=== PATIENT | male | born 1985 | race African-American/Black ===

== ENCOUNTER 2017-12-23 04:27 | Emergency (ER) | payer MEDICARE ==
[~2017-12-23] VITALS: Ht 175.3 cm; Wt 84.8 kg
[2017-12-23 04:33] VITALS: Ht 175.3 cm; Wt 84.8 kg
[2017-12-23 06:04] VITALS: BP 121/84
== END 2017-12-23 06:04 | disposition home or self-care (01) ==
LOC: ED 04:27
DX: S93.602A Unspecified sprain of left foot, initial encounter (principal); X58.XXXA Exposure to other specified factors, initial encounter; Y93.89 Activity, other specified; Y92.89 Other specified places as the place of occurrence of the external cause; Y99.8 Other external cause status
CPT/HCPCS: Q0092

== ENCOUNTER 2018-06-10 20:40 | Emergency (ER) | payer OTHER, MEDICAID ==
[~2018-06-10] VITALS: Ht 177.8 cm; Wt 90.4 kg
[2018-06-10 20:44] VITALS: Ht 177.8 cm; Wt 90.4 kg
[2018-06-10 21:32] VITALS: BP 124/90
== END 2018-06-10 21:32 | disposition home or self-care (01) ==
LOC: ED 20:40
DX: S46.812A Strain of other muscles, fascia and tendons at shoulder and upper arm level, left arm, initial encounter (principal); X50.9XXA Other and unspecified overexertion or strenuous movements or postures, initial encounter; Y93.89 Activity, other specified; Y92.89 Other specified places as the place of occurrence of the external cause; Y99.8 Other external cause status
CPT/HCPCS: Q0092

== ENCOUNTER 2018-06-12 18:05 | Emergency (ER) | payer OTHER, MEDICAID ==
[~2018-06-12] VITALS: Ht 177.8 cm; Wt 88.5 kg
[2018-06-12 18:19] VITALS: Ht 177.8 cm; Wt 88.5 kg
[2018-06-12 18:51] VITALS: BP 134/81
== END 2018-06-12 20:31 | disposition home or self-care (01) ==
LOC: ED 18:05
DX: S46.911A Strain of unspecified muscle, fascia and tendon at shoulder and upper arm level, right arm, initial encounter (principal); S86.912A Strain of unspecified muscle(s) and tendon(s) at lower leg level, left leg, initial encounter; M62.830 Muscle spasm of back; W01.0XXA Fall on same level from slipping, tripping and stumbling without subsequent striking against object, initial encounter; Y93.89 Activity, other specified; Y92.89 Other specified places as the place of occurrence of the external cause; Y99.8 Other external cause status
CPT/HCPCS: Q0092

== ENCOUNTER 2018-06-17 15:13 | Emergency (ER) | payer OTHER, MEDICAID ==
[~2018-06-17] VITALS: Ht 177.8 cm; Wt 90.7 kg
[2018-06-17 15:21] VITALS: Ht 177.8 cm; Wt 90.7 kg
[2018-06-17 16:12] VITALS: BP 132/94
== END 2018-06-17 16:17 | disposition home or self-care (01) ==
LOC: ED 15:13
DX: Z13.89 Encounter for screening for other disorder (principal)

== ENCOUNTER 2018-06-20 15:35 | Emergency (ER) | payer OTHER, MEDICAID ==
[~2018-06-20] VITALS: Ht 177.8 cm; Wt 84.8 kg
[2018-06-20 15:42] VITALS: Ht 177.8 cm; Wt 84.8 kg
[2018-06-20 16:46] VITALS: BP 130/71
== END 2018-06-20 16:46 | disposition home or self-care (01) ==
LOC: ED 15:35
DX: G44.209 Tension-type headache, unspecified, not intractable (principal)
CPT/HCPCS: J1885

== ENCOUNTER 2018-06-26 15:07 | Emergency (ER) | payer OTHER, MEDICAID ==
[~2018-06-26] VITALS: Ht 177.8 cm; Wt 90.7 kg
[2018-06-26 15:54] VITALS: BP 126/83; Ht 177.8 cm; Wt 90.7 kg
== END 2018-06-26 18:50 | disposition home or self-care (01) ==
LOC: ED 15:07
DX: R06.02 Shortness of breath (principal); R03.0 Elevated blood-pressure reading, without diagnosis of hypertension

== ENCOUNTER 2018-06-27 07:21 | Emergency (ER) | payer OTHER, MEDICAID ==
[~2018-06-27] VITALS: Ht 177.8 cm; Wt 91.6 kg
[2018-06-27 07:48] VITALS: BP 136/56; Ht 177.8 cm; Wt 91.6 kg
== END 2018-06-27 09:12 | disposition left against medical advice (07) ==
LOC: ED 07:21
DX: Z53.21 Procedure and treatment not carried out due to patient leaving prior to being seen by health care provider (principal)

== ENCOUNTER 2018-07-05 19:01 | Emergency (ER) | payer OTHER, MEDICAID ==
[~2018-07-05] VITALS: Ht 177.8 cm; Wt 90.3 kg
[2018-07-05 20:28] VITALS: Ht 177.8 cm; Wt 90.3 kg
[2018-07-05 23:44] VITALS: BP 133/77
== END 2018-07-05 23:44 | disposition home or self-care (01) ==
LOC: ED 19:01
DX: M79.672 Pain in left foot (principal); R03.0 Elevated blood-pressure reading, without diagnosis of hypertension; Z88.8 Allergy status to other drugs, medicaments and biological substances; Z91.013 Allergy to seafood; X58.XXXA Exposure to other specified factors, initial encounter; Y93.01 Activity, walking, marching and hiking; Y92.89 Other specified places as the place of occurrence of the external cause; Y99.8 Other external cause status
CPT/HCPCS: Q0092

== ENCOUNTER 2018-07-11 21:38 | Emergency (ER) | payer OTHER, MEDICAID ==
[~2018-07-11] VITALS: Ht 177.8 cm; Wt 86.6 kg
[2018-07-11 22:07] VITALS: Ht 177.8 cm; Wt 86.6 kg
[2018-07-12 01:31] VITALS: BP 130/74
== END 2018-07-12 06:15 | disposition left against medical advice (07) ==
LOC: ED 21:38
DX: S93.602A Unspecified sprain of left foot, initial encounter (principal); Z91.013 Allergy to seafood; Z88.8 Allergy status to other drugs, medicaments and biological substances; X58.XXXA Exposure to other specified factors, initial encounter; Y93.89 Activity, other specified; Y92.89 Other specified places as the place of occurrence of the external cause; Y99.8 Other external cause status

== ENCOUNTER 2018-07-18 05:32 | Emergency (ER) | payer OTHER, MEDICAID ==
[~2018-07-18] VITALS: Ht 177.8 cm; Wt 90.3 kg
[2018-07-18 05:40] VITALS: BP 119/68; Ht 177.8 cm; Wt 90.3 kg
== END 2018-07-18 07:16 | disposition home or self-care (01) ==
LOC: ED 05:32
DX: M79.672 Pain in left foot (principal); M79.671 Pain in right foot; M54.5 Low back pain; M25.512 Pain in left shoulder
CPT/HCPCS: J1885

== ENCOUNTER 2018-07-29 18:36 | Emergency (ER) | payer OTHER, MEDICAID ==
[~2018-07-29] VITALS: Ht 177.8 cm; Wt 87.1 kg
[2018-07-29 18:39] VITALS: BP 153/93; Ht 177.8 cm; Wt 87.1 kg
== END 2018-07-29 19:34 | disposition home or self-care (01) ==
LOC: ED 18:36
DX: G89.29 Other chronic pain (principal); M54.5 Low back pain; M19.90 Unspecified osteoarthritis, unspecified site; Z88.8 Allergy status to other drugs, medicaments and biological substances; Z91.013 Allergy to seafood
CPT/HCPCS: J1885

== ENCOUNTER 2018-08-03 16:10 | Emergency (ER) | payer OTHER, MEDICAID ==
[~2018-08-03] VITALS: Ht 175.3 cm; Wt 90.3 kg
[2018-08-03 16:20] VITALS: BP 136/83; Ht 175.3 cm; Wt 90.3 kg
== END 2018-08-03 17:43 | disposition left against medical advice (07) ==
LOC: ED 16:10
DX: Z53.21 Procedure and treatment not carried out due to patient leaving prior to being seen by health care provider (principal)

== ENCOUNTER 2018-08-31 20:16 | Emergency (ER) | payer OTHER, MEDICAID ==
[~2018-08-31] VITALS: Ht 177.8 cm; Wt 90.7 kg
[2018-08-31 20:55] VITALS: BP 108/91; Ht 177.8 cm; Wt 90.7 kg
== END 2018-08-31 23:18 | disposition left against medical advice (07) ==
LOC: ED 20:16
DX: Z53.21 Procedure and treatment not carried out due to patient leaving prior to being seen by health care provider (principal)

== ENCOUNTER 2018-09-12 00:22 | Emergency (ER) | payer OTHER, MEDICAID ==
[~2018-09-12] VITALS: Ht 175.3 cm; Wt 89.8 kg
[2018-09-12 00:26] VITALS: Ht 175.3 cm; Wt 89.8 kg
[2018-09-12 04:48] VITALS: BP 143/77
== END 2018-09-12 04:48 | disposition home or self-care (01) ==
LOC: ED 00:22
DX: R10.9 Unspecified abdominal pain (principal); G89.29 Other chronic pain; M19.90 Unspecified osteoarthritis, unspecified site; Z59.0 Homelessness; Z91.013 Allergy to seafood; Z88.8 Allergy status to other drugs, medicaments and biological substances
CPT/HCPCS: J1885

== ENCOUNTER 2018-09-20 02:44 | Emergency (ER) | payer OTHER, MEDICAID ==
[~2018-09-20] VITALS: Ht 175.3 cm; Wt 90.7 kg
[2018-09-20 02:48] VITALS: Ht 175.3 cm; Wt 90.7 kg
[2018-09-20 05:20] VITALS: BP 131/78
== END 2018-09-20 05:15 | disposition home or self-care (01) ==
LOC: ED 02:44
DX: G89.29 Other chronic pain (principal); M54.9 Dorsalgia, unspecified; Z91.013 Allergy to seafood; Z88.8 Allergy status to other drugs, medicaments and biological substances
CPT/HCPCS: J1885

== ENCOUNTER 2018-09-22 19:59 | Emergency (ER) | payer OTHER, MEDICAID ==
[~2018-09-22] VITALS: Ht 172.7 cm; Wt 88.5 kg
[2018-09-22 20:06] VITALS: Ht 172.7 cm; Wt 88.5 kg
[2018-09-22 21:27] VITALS: BP 127/87
== END 2018-09-22 21:27 | disposition home or self-care (01) ==
LOC: ED 19:59
DX: G89.29 Other chronic pain (principal); M79.671 Pain in right foot; M79.672 Pain in left foot; Z91.013 Allergy to seafood; Z88.8 Allergy status to other drugs, medicaments and biological substances

== ENCOUNTER 2018-09-23 06:27 | Emergency (ER) | payer OTHER, MEDICAID ==
[~2018-09-23] VITALS: Ht 175.3 cm; Wt 87.5 kg
[2018-09-23 06:31] VITALS: Ht 175.3 cm; Wt 87.5 kg
[2018-09-23 07:59] VITALS: BP 125/82
== END 2018-09-23 07:59 | disposition home or self-care (01) ==
LOC: ED 06:27
DX: G89.29 Other chronic pain (principal); M79.672 Pain in left foot; F17.210 Nicotine dependence, cigarettes, uncomplicated; M54.9 Dorsalgia, unspecified; M19.90 Unspecified osteoarthritis, unspecified site; Z59.0 Homelessness; Z91.013 Allergy to seafood; Z91.048 Other nonmedicinal substance allergy status
CPT/HCPCS: 99406

== ENCOUNTER 2018-09-23 21:40 | Emergency (ER) | payer OTHER, MEDICAID ==
[~2018-09-23] VITALS: Ht 172.7 cm; Wt 89.8 kg
[2018-09-23 21:45] VITALS: Ht 172.7 cm; Wt 89.8 kg
[2018-09-23 23:08] VITALS: BP 131/93
== END 2018-09-23 23:08 | disposition home or self-care (01) ==
LOC: ED 21:40
DX: R22.0 Localized swelling, mass and lump, head (principal); G89.29 Other chronic pain; M19.90 Unspecified osteoarthritis, unspecified site; Z91.013 Allergy to seafood; Z91.048 Other nonmedicinal substance allergy status

== ENCOUNTER 2018-10-02 18:37 | Emergency (ER) | payer OTHER, MEDICAID | END 2018-10-02 22:22 | disposition home or self-care (01) | LOC: ED 18:37 ==

== ENCOUNTER 2018-10-08 02:43 | Emergency (ER) | payer OTHER, MEDICAID ==
[~2018-10-08] VITALS: Ht 175.3 cm; Wt 93.0 kg
[2018-10-08 02:56] VITALS: Ht 175.3 cm; Wt 93.0 kg
[2018-10-08 04:07] LABS: BASOPHIL % 0.5 % (0-2); PLATELET COUNT 207 x10^3mcL (130-400); RED CELL DISTRIBUTION WIDTH 14.1 % (11.5-14.5)
[2018-10-08 04:10] LABS: CALCIUM 8.4 mg/dL (8.5-10.1); CARBON DIOXIDE 30.3 mmol/L (21-32); CHLORIDE SERUM 101 mmol/L (98-107); GFR1 > 60 mL/min; GLUCOSE SERUM 102 mg/dL (74-106); POTASSIUM SERUM 4.1 mmol/L (3.5-5.1); SODIUM SERUM 135 mmol/L (136-145)
[2018-10-08 04:14] LABS: ALBUMIN 3.6 g/dL (3.4-5.0); ALKALINE PHOSPHATASE 57 U/L (46-116); ALT/SGPT 34 U/L (16-63); AMYLASE 65 U/L (25-115); AST/SGOT 20 U/L (15-37); BILIRUBIN TOTAL 0.32 mg/dL (0.20-1.00); LIPASE 107 IU/L (73-393); TOTAL PROTEIN, SERUM 7.2 g/dL (6.4-8.2)
[2018-10-08 06:18] VITALS: BP 128/91
== END 2018-10-08 06:18 | disposition home or self-care (01) ==
LOC: ED 02:43
PROVIDERS: Emergency Medicine
DX: K59.00 Constipation, unspecified (principal)
CPT/HCPCS: 36415

== ENCOUNTER 2018-10-28 20:12 | Emergency (ER) | payer OTHER, MEDICAID | END 2018-10-28 22:25 | disposition left against medical advice (07) | LOC: ED 20:12 | DX: Z53.21 Procedure and treatment not carried out due to patient leaving prior to being seen by health care provider (principal) ==

== ENCOUNTER 2018-12-09 21:34 | Emergency (ER) | payer BC, MEDICAID ==
[~2018-12-09] VITALS: Ht 175.3 cm; Wt 90.8 kg
[2018-12-09 21:55] VITALS: BP 95/74; Ht 175.3 cm; Wt 90.8 kg
== END 2018-12-09 22:36 | disposition left against medical advice (07) ==
LOC: ED 21:34
DX: Z53.21 Procedure and treatment not carried out due to patient leaving prior to being seen by health care provider (principal)

== ENCOUNTER 2018-12-15 22:59 | Emergency (ER) | payer OTHER, MEDICAID ==
[~2018-12-15] VITALS: Ht 172.7 cm; Wt 93.0 kg
[2018-12-15 23:06] VITALS: Ht 172.7 cm; Wt 93.0 kg
[2018-12-16 01:23] VITALS: BP 130/78
== END 2018-12-16 01:23 | disposition home or self-care (01) ==
LOC: ED 22:59
DX: R07.89 Other chest pain (principal); R06.02 Shortness of breath; R05 Cough; G89.29 Other chronic pain; M54.9 Dorsalgia, unspecified; M19.90 Unspecified osteoarthritis, unspecified site; Z91.013 Allergy to seafood; Z91.041 Radiographic dye allergy status

== ENCOUNTER 2018-12-16 23:09 | Emergency (ER) | payer OTHER, MEDICAID ==
[~2018-12-16] VITALS: Ht 175.3 cm; Wt 90.0 kg
[2018-12-16 23:13] VITALS: Ht 175.3 cm; Wt 90.0 kg
[2018-12-17 01:11] VITALS: BP 132/96
== END 2018-12-17 01:12 | disposition home or self-care (01) ==
LOC: ED 23:09
DX: J45.901 Unspecified asthma with (acute) exacerbation (principal); M19.90 Unspecified osteoarthritis, unspecified site; Z88.8 Allergy status to other drugs, medicaments and biological substances; Z91.013 Allergy to seafood
CPT/HCPCS: J7613; Q0092

== ENCOUNTER 2018-12-22 19:26 | Emergency (ER) | payer OTHER, MEDICAID ==
[~2018-12-22] VITALS: Ht 175.3 cm; Wt 89.8 kg
[2018-12-22 19:36] VITALS: BP 156/110; Ht 175.3 cm; Wt 89.8 kg
== END 2018-12-22 21:45 | disposition home or self-care (01) ==
LOC: ED 19:26
DX: S50.361A Insect bite (nonvenomous) of right elbow, initial encounter (principal); M19.90 Unspecified osteoarthritis, unspecified site; Z91.013 Allergy to seafood; Z88.8 Allergy status to other drugs, medicaments and biological substances; W57.XXXA Bitten or stung by nonvenomous insect and other nonvenomous arthropods, initial encounter; Y93.89 Activity, other specified; Y92.89 Other specified places as the place of occurrence of the external cause; Y99.8 Other external cause status

== ENCOUNTER 2019-02-21 20:22 | Emergency (ER) | payer OTHER, MEDICAID ==
[~2019-02-21] VITALS: Ht 172.7 cm; Wt 86.6 kg
[2019-02-21 20:30] VITALS: Ht 172.7 cm; Wt 86.6 kg
[2019-02-21 21:50] VITALS: BP 119/73
== END 2019-02-21 21:50 | disposition home or self-care (01) ==
LOC: ED 20:22
DX: M19.90 Unspecified osteoarthritis, unspecified site (principal); G89.29 Other chronic pain; M54.9 Dorsalgia, unspecified; M79.642 Pain in left hand; M79.641 Pain in right hand; M79.672 Pain in left foot; M79.671 Pain in right foot; Z91.013 Allergy to seafood; Z76.0 Encounter for issue of repeat prescription; Z91.041 Radiographic dye allergy status
CPT/HCPCS: 82962; J1885

== ENCOUNTER 2019-03-04 20:04 | Emergency (ER) | payer OTHER, MEDICAID ==
[~2019-03-04] VITALS: Ht 175.3 cm; Wt 86.2 kg
[2019-03-04 20:20] VITALS: BP 107/63; Ht 175.3 cm; Wt 86.2 kg
== END 2019-03-04 21:02 | disposition home or self-care (01) ==
LOC: ED 20:04
DX: G89.29 Other chronic pain (principal); M54.5 Low back pain; Z88.8 Allergy status to other drugs, medicaments and biological substances; Z91.013 Allergy to seafood

== ENCOUNTER 2019-03-17 19:46 | Emergency (ER) | payer OTHER, MEDICAID ==
[~2019-03-17] VITALS: Ht 175.3 cm; Wt 90.3 kg
[2019-03-17 20:35] VITALS: Ht 175.3 cm; Wt 90.3 kg
[2019-03-18 02:24] VITALS: BP 118/69
== END 2019-03-18 02:24 | disposition home or self-care (01) ==
LOC: ED 19:46
DX: R07.81 Pleurodynia (principal); M25.561 Pain in right knee; Z88.8 Allergy status to other drugs, medicaments and biological substances; Z91.013 Allergy to seafood; V02.09XA Pedestrian with other conveyance injured in collision with two- or three-wheeled motor vehicle in nontraffic accident, initial encounter; Y93.89 Activity, other specified; Y92.413 State road as the place of occurrence of the external cause; Y99.8 Other external cause status
CPT/HCPCS: Q0162

== ENCOUNTER 2019-03-25 14:15 | Emergency (ER) | payer OTHER, MEDICAID ==
[~2019-03-25] VITALS: Ht 175.3 cm; Wt 90.3 kg
[2019-03-25 14:30] VITALS: Ht 175.3 cm; Wt 90.3 kg
[2019-03-25 15:24] VITALS: BP 133/79
== END 2019-03-25 15:24 | disposition home or self-care (01) ==
LOC: ED 14:15
DX: K42.9 Umbilical hernia without obstruction or gangrene (principal); G89.29 Other chronic pain; M54.9 Dorsalgia, unspecified; M19.90 Unspecified osteoarthritis, unspecified site; Z91.013 Allergy to seafood; Z91.041 Radiographic dye allergy status

== ENCOUNTER 2019-04-21 19:58 | Emergency (ER) | payer OTHER, MEDICAID ==
[~2019-04-21] VITALS: Ht 175.3 cm; Wt 95.3 kg
[2019-04-21 22:17] VITALS: BP 134/80
== END 2019-04-21 22:17 | disposition home or self-care (01) ==
LOC: ED 19:58
DX: M79.604 Pain in right leg (principal); R22.31 Localized swelling, mass and lump, right upper limb; Z88.8 Allergy status to other drugs, medicaments and biological substances; Z91.013 Allergy to seafood
CPT/HCPCS: 82962

== ENCOUNTER 2019-04-29 00:21 | Emergency (ER) | payer OTHER, MEDICAID ==
[~2019-04-29] VITALS: Ht 175.3 cm; Wt 93.0 kg
[2019-04-29 00:33] VITALS: Ht 175.3 cm; Wt 93.0 kg
[2019-04-29 00:47] LABS: BASOPHIL % 0.1 % (0-2); PLATELET COUNT 233 x10^3mcL (130-400); RED CELL DISTRIBUTION WIDTH 14.2 % (11.5-14.5)
[2019-04-29 01:10] LABS: CALCIUM 8.8 mg/dL (8.5-10.1); CARBON DIOXIDE 22.2 mmol/L (21-32); CHLORIDE SERUM 97 mmol/L (98-107); CREATININE SERUM 1.1 mg/dL (0.7-1.3); GFR1 > 60 mL/min; GLUCOSE SERUM 129 mg/dL (74-106); POTASSIUM SERUM 3.6 mmol/L (3.5-5.1); SODIUM SERUM 135 mmol/L (136-145)
[2019-04-29 01:14] LABS: ALBUMIN 4.1 g/dL (3.4-5.0); ALKALINE PHOSPHATASE 72 U/L (46-116); ALT/SGPT 29 U/L (16-63); AST/SGOT 16 U/L (15-37)
[2019-04-29 01:16] LABS: TOTAL PROTEIN, SERUM 8.3 g/dL (6.4-8.2)
[2019-04-29 02:11] VITALS: BP 130/80
== END 2019-04-29 02:11 | disposition home or self-care (01) ==
LOC: ED 00:21
PROVIDERS: Emergency Medicine
DX: R42 Dizziness and giddiness (principal); I87.2 Venous insufficiency (chronic) (peripheral); I10 Essential (primary) hypertension; G89.29 Other chronic pain; M54.9 Dorsalgia, unspecified; M19.90 Unspecified osteoarthritis, unspecified site; Z91.013 Allergy to seafood; Z88.1 Allergy status to other antibiotic agents
CPT/HCPCS: 36415; 83880

== ENCOUNTER 2019-05-30 20:06 | Emergency (ER) | payer OTHER, MEDICAID ==
[~2019-05-30] VITALS: Ht 172.7 cm; Wt 92.1 kg
[2019-05-30 20:49] VITALS: Ht 172.7 cm; Wt 92.1 kg
[2019-05-30 22:33] VITALS: BP 159/101
== END 2019-05-30 22:33 | disposition home or self-care (01) ==
LOC: ED 20:06
DX: R10.10 Upper abdominal pain, unspecified (principal); I10 Essential (primary) hypertension; Z88.8 Allergy status to other drugs, medicaments and biological substances; Z91.013 Allergy to seafood
CPT/HCPCS: 82962; Q0162

== ENCOUNTER 2019-06-14 14:32 | Emergency (ER) | payer OTHER, MEDICAID ==
[~2019-06-14] VITALS: Ht 175.3 cm; Wt 92.5 kg
[2019-06-14 14:37] VITALS: BP 123/81; Ht 175.3 cm; Wt 92.5 kg
== END 2019-06-14 16:23 | disposition left against medical advice (07) ==
LOC: ED 14:32
DX: Z53.21 Procedure and treatment not carried out due to patient leaving prior to being seen by health care provider (principal)

== ENCOUNTER 2019-06-21 19:22 | Emergency (ER) | payer OTHER, MEDICAID ==
[~2019-06-21] VITALS: Ht 172.7 cm; Wt 88.9 kg
[2019-06-21 19:26] VITALS: BP 124/75; Ht 172.7 cm; Wt 88.9 kg
== END 2019-06-21 20:23 | disposition home or self-care (01) ==
LOC: ED 19:22
DX: G47.00 Insomnia, unspecified (principal); I10 Essential (primary) hypertension; G89.29 Other chronic pain; M19.90 Unspecified osteoarthritis, unspecified site; Z88.8 Allergy status to other drugs, medicaments and biological substances; Z91.013 Allergy to seafood

== ENCOUNTER 2019-09-21 17:54 | Emergency (ER) | payer OTHER, MEDICAID, SELFPAY ==
[~2019-09-21] VITALS: Ht 177.8 cm; Wt 93.0 kg
[2019-09-21 18:17] VITALS: BP 142/89; Ht 177.8 cm; Wt 93.0 kg
== END 2019-09-21 18:45 | disposition home or self-care (01) ==
LOC: ED 17:54
DX: R05 Cough (principal); R06.00 Dyspnea, unspecified; M25.561 Pain in right knee; G89.29 Other chronic pain; I10 Essential (primary) hypertension; M19.90 Unspecified osteoarthritis, unspecified site; Z88.8 Allergy status to other drugs, medicaments and biological substances; Z91.013 Allergy to seafood; Z59.0 Homelessness

== ENCOUNTER 2019-10-07 05:50 | Emergency (ER) | payer OTHER, MEDICAID ==
[~2019-10-07] VITALS: Ht 175.3 cm; Wt 83.9 kg
[2019-10-07 05:51] VITALS: Ht 175.3 cm; Wt 83.9 kg
[2019-10-07 07:08] VITALS: BP 125/81
== END 2019-10-07 07:08 | disposition home or self-care (01) ==
LOC: ED 05:50
DX: M54.2 Cervicalgia (principal); M25.511 Pain in right shoulder; M25.512 Pain in left shoulder; I10 Essential (primary) hypertension; G89.29 Other chronic pain; M19.90 Unspecified osteoarthritis, unspecified site; Z88.8 Allergy status to other drugs, medicaments and biological substances; Z91.013 Allergy to seafood

== ENCOUNTER 2019-10-07 16:48 | Emergency (ER) | payer OTHER, MEDICAID ==
[~2019-10-07] VITALS: Ht 175.3 cm; Wt 83.9 kg
[2019-10-07 17:19] VITALS: Ht 175.3 cm; Wt 83.9 kg
[2019-10-07 19:14] VITALS: BP 117/63
== END 2019-10-07 19:14 | disposition home or self-care (01) ==
LOC: ED 16:48
DX: S93.602A Unspecified sprain of left foot, initial encounter (principal); S93.601A Unspecified sprain of right foot, initial encounter; G89.29 Other chronic pain; I10 Essential (primary) hypertension; M19.90 Unspecified osteoarthritis, unspecified site; W17.89XA Other fall from one level to another, initial encounter; Y93.89 Activity, other specified; Y92.89 Other specified places as the place of occurrence of the external cause; Y99.8 Other external cause status
CPT/HCPCS: J1885; Q0092

== ENCOUNTER 2019-10-08 22:26 | Emergency (ER) | payer OTHER, MEDICAID ==
[~2019-10-08] VITALS: Ht 175.3 cm; Wt 92.1 kg
[2019-10-08 22:35] VITALS: Ht 175.3 cm; Wt 92.1 kg
[2019-10-09 01:18] VITALS: BP 115/71
== END 2019-10-09 01:18 | disposition home or self-care (01) ==
LOC: ED 22:26
DX: R09.81 Nasal congestion (principal); R05 Cough

== ENCOUNTER 2019-10-10 12:50 | Emergency (ER) | payer OTHER, MEDICAID ==
[~2019-10-10] VITALS: Ht 175.3 cm; Wt 83.9 kg
[2019-10-10 12:52] VITALS: Ht 175.3 cm; Wt 83.9 kg
[2019-10-10 13:36] VITALS: BP 167/113
== END 2019-10-10 13:36 | disposition home or self-care (01) ==
LOC: ED 12:50
DX: F22 Delusional disorders (principal); F15.10 Other stimulant abuse, uncomplicated; I10 Essential (primary) hypertension; G89.29 Other chronic pain; M19.90 Unspecified osteoarthritis, unspecified site; Z88.8 Allergy status to other drugs, medicaments and biological substances; Z91.013 Allergy to seafood

== ENCOUNTER 2019-10-23 19:01 | Emergency (ER) | payer OTHER, MEDICAID ==
[~2019-10-23] VITALS: Ht 175.3 cm; Wt 93.0 kg
[2019-10-23 19:08] VITALS: BP 137/92; Ht 175.3 cm; Wt 93.0 kg
== END 2019-10-23 21:14 | disposition home or self-care (01) ==
LOC: ED 19:01
DX: K59.00 Constipation, unspecified (principal); R11.2 Nausea with vomiting, unspecified; I10 Essential (primary) hypertension; G89.29 Other chronic pain; M54.9 Dorsalgia, unspecified; Z91.013 Allergy to seafood
CPT/HCPCS: Q0092

== ENCOUNTER 2019-10-27 19:59 | Emergency (ER) | payer OTHER, MEDICAID ==
[~2019-10-27] VITALS: Ht 175.3 cm; Wt 90.7 kg
[2019-10-27 20:06] VITALS: Ht 175.3 cm; Wt 90.7 kg
[2019-10-27 20:56] VITALS: BP 131/86
== END 2019-10-27 20:56 | disposition home or self-care (01) ==
LOC: ED 19:59
DX: K21.9 Gastro-esophageal reflux disease without esophagitis (principal); I10 Essential (primary) hypertension; G89.29 Other chronic pain; M19.90 Unspecified osteoarthritis, unspecified site; Z88.8 Allergy status to other drugs, medicaments and biological substances; Z91.013 Allergy to seafood

== ENCOUNTER 2019-11-01 21:43 | Emergency (ER) | payer OTHER, MEDICAID ==
[~2019-11-01] VITALS: Ht 177.8 cm; Wt 83.9 kg
[2019-11-01 21:49] VITALS: Ht 177.8 cm; Wt 83.9 kg
[2019-11-02 03:30] VITALS: BP 97/64
== END 2019-11-02 03:30 | disposition home or self-care (01) ==
LOC: ED 21:43
DX: R05 Cough (principal); F10.10 Alcohol abuse, uncomplicated; F12.10 Cannabis abuse, uncomplicated; G89.29 Other chronic pain; K21.9 Gastro-esophageal reflux disease without esophagitis; M19.90 Unspecified osteoarthritis, unspecified site; Z59.0 Homelessness; Z88.8 Allergy status to other drugs, medicaments and biological substances; Z91.013 Allergy to seafood
CPT/HCPCS: Q0092

== ENCOUNTER 2019-11-11 05:07 | Emergency (ER) | payer OTHER, MEDICAID ==
[~2019-11-11] VITALS: Ht 175.3 cm; Wt 91.2 kg
[2019-11-11 05:15] VITALS: Ht 175.3 cm; Wt 91.2 kg
[2019-11-11 05:44] VITALS: BP 130/99
== END 2019-11-11 05:44 | disposition home or self-care (01) ==
LOC: ED 05:07
DX: G47.00 Insomnia, unspecified (principal)

== ENCOUNTER 2019-11-16 21:23 | Emergency (ER) | payer OTHER, MEDICAID ==
[~2019-11-16] VITALS: Ht 175.3 cm; Wt 92.1 kg
[2019-11-16 21:35] VITALS: Ht 175.3 cm; Wt 92.1 kg
[2019-11-16 21:53] LABS: BASOPHIL % 0.4 % (0-2); PLATELET COUNT 178 x10^3mcL (130-400); RED CELL DISTRIBUTION WIDTH 13.8 % (11.5-14.5)
[2019-11-16 22:12] LABS: CALCIUM 7.7 mg/dL (8.5-10.1); CARBON DIOXIDE 26.2 mmol/L (21-32); CHLORIDE SERUM 104 mmol/L (98-107); CREATININE SERUM 1.3 mg/dL (0.7-1.3); GFR1 > 60 mL/min; GLUCOSE SERUM 104 mg/dL (74-106); POTASSIUM SERUM 3.9 mmol/L (3.5-5.1); SODIUM SERUM 140 mmol/L (136-145)
[2019-11-16 22:15] LABS: ALKALINE PHOSPHATASE 52 U/L (46-116); ALT/SGPT 28 U/L (16-63); AST/SGOT 21 U/L (15-37); BILIRUBIN TOTAL 0.2 mg/dL (0.20-1.00); LIPASE 217 IU/L (73-393); TOTAL PROTEIN, SERUM 6.4 g/dL (6.4-8.2)
[2019-11-16 22:16] LABS: ALBUMIN 3.2 g/dL (3.4-5.0)
[2019-11-16 22:25] VITALS: BP 113/71
== END 2019-11-16 22:26 | disposition home or self-care (01) ==
LOC: ED 21:23
PROVIDERS: Emergency Medicine
DX: K52.9 Noninfective gastroenteritis and colitis, unspecified (principal); I10 Essential (primary) hypertension; Z88.8 Allergy status to other drugs, medicaments and biological substances; Z91.013 Allergy to seafood; Z59.0 Homelessness
CPT/HCPCS: 36415

== ENCOUNTER 2019-11-18 19:53 | Emergency (ER) | payer OTHER, MEDICAID ==
[2019-11-18 20:02] VITALS: BP 134/81; Ht 175.3 cm
== END 2019-11-18 20:30 | disposition home or self-care (01) ==
LOC: ED 19:53
DX: T78.40XA Allergy, unspecified, initial encounter (principal); Z76.0 Encounter for issue of repeat prescription; I10 Essential (primary) hypertension; Z91.013 Allergy to seafood; Z88.8 Allergy status to other drugs, medicaments and biological substances; X58.XXXA Exposure to other specified factors, initial encounter

== ENCOUNTER 2019-11-19 20:28 | Emergency (ER) | payer OTHER, MEDICAID ==
[~2019-11-19] VITALS: Ht 172.7 cm; Wt 90.8 kg
[2019-11-19 20:43] VITALS: Ht 172.7 cm; Wt 90.8 kg
[2019-11-19 22:46] VITALS: BP 116/72
== END 2019-11-19 22:46 | disposition home or self-care (01) ==
LOC: ED 20:28
DX: F22 Delusional disorders (principal); I10 Essential (primary) hypertension; Z91.013 Allergy to seafood; Z88.8 Allergy status to other drugs, medicaments and biological substances

== ENCOUNTER 2019-11-22 23:47 | Emergency (ER) | payer OTHER, MEDICAID ==
[~2019-11-22] VITALS: Ht 167.6 cm; Wt 85.3 kg
[2019-11-23 00:06] VITALS: Ht 167.6 cm; Wt 85.3 kg
[2019-11-23 03:37] VITALS: BP 131/96
== END 2019-11-23 03:37 | disposition home or self-care (01) ==
LOC: ED 23:47
DX: F10.20 Alcohol dependence, uncomplicated (principal); R44.0 Auditory hallucinations; I10 Essential (primary) hypertension; Z88.8 Allergy status to other drugs, medicaments and biological substances; Z91.013 Allergy to seafood; Y90.9 Presence of alcohol in blood, level not specified

== ENCOUNTER 2019-11-27 22:04 | Emergency (ER) | payer OTHER, MEDICAID ==
[~2019-11-27] VITALS: Ht 175.3 cm; Wt 91.6 kg
[2019-11-27 22:17] VITALS: Ht 175.3 cm; Wt 91.6 kg
[2019-11-27 23:08] VITALS: BP 123/76
== END 2019-11-27 23:08 | disposition home or self-care (01) ==
LOC: ED 22:04
DX: R19.7 Diarrhea, unspecified (principal); I10 Essential (primary) hypertension; Z88.8 Allergy status to other drugs, medicaments and biological substances; Z91.013 Allergy to seafood

== ENCOUNTER 2019-12-03 00:04 | Emergency (ER) | payer OTHER, MEDICAID ==
[~2019-12-03] VITALS: Ht 175.3 cm; Wt 90.3 kg
[2019-12-03 00:11] VITALS: Ht 175.3 cm; Wt 90.3 kg
[2019-12-03 05:51] VITALS: BP 138/85
== END 2019-12-03 05:51 | disposition home or self-care (01) ==
LOC: ED 00:04
DX: G47.00 Insomnia, unspecified (principal); I10 Essential (primary) hypertension; Z91.013 Allergy to seafood; Z88.8 Allergy status to other drugs, medicaments and biological substances

== ENCOUNTER 2019-12-15 19:35 | Emergency (ER) | payer OTHER, MEDICAID ==
[~2019-12-15] VITALS: Ht 175.3 cm; Wt 93.4 kg
[2019-12-15 19:42] VITALS: Ht 175.3 cm; Wt 93.4 kg
[2019-12-15 22:35] VITALS: BP 120/82
== END 2019-12-15 22:35 | disposition home or self-care (01) ==
LOC: ED 19:35
DX: K59.00 Constipation, unspecified (principal); I10 Essential (primary) hypertension; Z88.8 Allergy status to other drugs, medicaments and biological substances; Z91.013 Allergy to seafood

== ENCOUNTER 2019-12-26 23:23 | Emergency (ER) | payer OTHER, MEDICAID ==
[~2019-12-26] VITALS: Ht 175.3 cm; Wt 90.7 kg
[2019-12-26 23:47] VITALS: BP 114/77; Ht 175.3 cm; Wt 90.7 kg
== END 2019-12-27 00:20 | disposition home or self-care (01) ==
LOC: ED 23:23
DX: K42.9 Umbilical hernia without obstruction or gangrene (principal); R12 Heartburn; Z91.013 Allergy to seafood; Z91.041 Radiographic dye allergy status

== ENCOUNTER 2020-01-31 21:29 | Emergency (ER) | payer OTHER, MEDICAID, SELFPAY ==
[~2020-01-31] VITALS: Ht 175.3 cm; Wt 90.7 kg
[2020-01-31 21:30] VITALS: BP 129/90; Ht 175.3 cm; Wt 90.7 kg
== END 2020-01-31 22:14 | disposition left against medical advice (07) ==
LOC: ED 21:29
DX: Z53.21 Procedure and treatment not carried out due to patient leaving prior to being seen by health care provider (principal)

== ENCOUNTER 2020-01-31 22:26 | Emergency (ER) | payer OTHER, MEDICAID, SELFPAY ==
[~2020-01-31] VITALS: Ht 172.7 cm; Wt 92.1 kg
[2020-01-31 22:36] VITALS: Ht 172.7 cm; Wt 92.1 kg
[2020-01-31 23:57] VITALS: BP 118/48
== END 2020-01-31 23:57 | disposition home or self-care (01) ==
LOC: ED 22:26
DX: K29.20 Alcoholic gastritis without bleeding (principal); Z91.013 Allergy to seafood; Z88.8 Allergy status to other drugs, medicaments and biological substances

== ENCOUNTER 2020-02-05 01:03 | Emergency (ER) | payer OTHER, MEDICAID ==
[~2020-02-05] VITALS: Ht 175.3 cm; Wt 90.7 kg
[2020-02-05 01:23] VITALS: Ht 175.3 cm; Wt 90.7 kg
[2020-02-05 06:39] VITALS: BP 133/96
== END 2020-02-05 06:25 | disposition home or self-care (01) ==
LOC: ED 01:03
DX: E86.0 Dehydration (principal); Z88.8 Allergy status to other drugs, medicaments and biological substances; Z91.013 Allergy to seafood
CPT/HCPCS: J7030

== ENCOUNTER 2020-02-11 18:46 | Emergency (ER) | payer OTHER, MEDICAID ==
[~2020-02-11] VITALS: Ht 175.3 cm; Wt 90.3 kg
[2020-02-11 19:05] VITALS: Ht 175.3 cm; Wt 90.3 kg
[2020-02-11 20:03] VITALS: BP 125/72
== END 2020-02-11 20:03 | disposition home or self-care (01) ==
LOC: ED 18:46
DX: K02.9 Dental caries, unspecified (principal); R19.7 Diarrhea, unspecified; Z88.8 Allergy status to other drugs, medicaments and biological substances; Z91.013 Allergy to seafood

== ENCOUNTER 2020-02-19 20:55 | Emergency (ER) | payer OTHER, MEDICAID ==
[~2020-02-19] VITALS: Ht 175.3 cm; Wt 92.2 kg
[2020-02-19 21:20] VITALS: Ht 175.3 cm; Wt 92.2 kg
[2020-02-19 22:22] VITALS: BP 128/82
== END 2020-02-19 22:11 | disposition home or self-care (01) ==
LOC: ED 20:55
DX: R51 Headache (principal); R68.84 Jaw pain; Z88.8 Allergy status to other drugs, medicaments and biological substances; Z91.013 Allergy to seafood

== ENCOUNTER 2020-02-24 21:00 | Emergency (ER) | payer OTHER, MEDICAID ==
[~2020-02-24] VITALS: Ht 175.3 cm; Wt 89.8 kg
[2020-02-24 21:15] VITALS: Ht 175.3 cm; Wt 89.8 kg
[2020-02-24 23:43] VITALS: BP 111/76
== END 2020-02-24 23:43 | disposition home or self-care (01) ==
LOC: ED 21:00
DX: K29.21 Alcoholic gastritis with bleeding (principal); Z91.041 Radiographic dye allergy status

== ENCOUNTER 2020-02-26 21:10 | Emergency (ER) | payer OTHER, MEDICAID ==
[~2020-02-26] VITALS: Ht 175.3 cm; Wt 91.6 kg
[2020-02-26 22:18] VITALS: BP 125/83
== END 2020-02-26 22:19 | disposition home or self-care (01) ==
LOC: ED 21:10
DX: K59.00 Constipation, unspecified (principal); Z91.013 Allergy to seafood; Z88.8 Allergy status to other drugs, medicaments and biological substances

== ENCOUNTER 2020-03-03 18:46 | Emergency (ER) | payer OTHER, MEDICAID ==
[~2020-03-03] VITALS: Ht 175.3 cm; Wt 90.7 kg
[2020-03-03 19:24] VITALS: BP 133/87; Ht 175.3 cm; Wt 90.7 kg
== END 2020-03-03 21:34 | disposition left against medical advice (07) ==
LOC: ED 18:46
DX: K59.00 Constipation, unspecified (principal); R05 Cough; Z88.8 Allergy status to other drugs, medicaments and biological substances; Z91.013 Allergy to seafood

== ENCOUNTER 2020-03-29 16:27 | Emergency (ER) | payer OTHER, MEDICAID ==
[~2020-03-29] VITALS: Ht 175.3 cm; Wt 92.5 kg
[2020-03-29 16:37] VITALS: Ht 175.3 cm; Wt 92.5 kg
[2020-03-29 16:59] VITALS: BP 106/61
== END 2020-03-29 16:59 | disposition home or self-care (01) ==
LOC: ED 16:27
DX: S61.402A Unspecified open wound of left hand, initial encounter (principal); W45.8XXA Other foreign body or object entering through skin, initial encounter; Y93.89 Activity, other specified; Y92.89 Other specified places as the place of occurrence of the external cause; Y99.8 Other external cause status; Z91.013 Allergy to seafood; Z88.8 Allergy status to other drugs, medicaments and biological substances

== ENCOUNTER 2020-04-03 03:59 | Emergency (ER) | payer OTHER, MEDICAID ==
[~2020-04-03] VITALS: Ht 175.3 cm; Wt 90.7 kg
[2020-04-03 04:01] VITALS: Ht 175.3 cm; Wt 90.7 kg
[2020-04-03 05:46] VITALS: BP 130/85
== END 2020-04-03 05:15 | disposition home or self-care (01) ==
LOC: ED 03:59
DX: R19.7 Diarrhea, unspecified (principal); Z91.013 Allergy to seafood; Z91.041 Radiographic dye allergy status

== ENCOUNTER 2020-04-12 17:57 | Emergency (ER) | payer OTHER, MEDICAID ==
[~2020-04-12] VITALS: Ht 175.3 cm; Wt 95.3 kg
[2020-04-12 18:06] VITALS: Ht 175.3 cm; Wt 95.3 kg
[2020-04-12 19:13] VITALS: BP 127/79
== END 2020-04-12 19:13 | disposition home or self-care (01) ==
LOC: ED 17:57
DX: K29.20 Alcoholic gastritis without bleeding (principal); S00.431A Contusion of right ear, initial encounter; F10.10 Alcohol abuse, uncomplicated; Z88.8 Allergy status to other drugs, medicaments and biological substances; Z91.013 Allergy to seafood; W18.09XA Striking against other object with subsequent fall, initial encounter; Y93.89 Activity, other specified; Y92.89 Other specified places as the place of occurrence of the external cause; Y99.8 Other external cause status

== ENCOUNTER 2020-04-26 21:52 | Emergency (ER) | payer OTHER, MEDICAID ==
[~2020-04-26] VITALS: Ht 175.3 cm; Wt 90.9 kg
[2020-04-26 22:01] VITALS: Ht 175.3 cm; Wt 90.9 kg
[2020-04-26 22:42] LABS: BASOPHIL % 0.7 % (0-2); PLATELET COUNT 248 x10^3mcL (130-400)
[2020-04-26 22:43] LABS: RED CELL DISTRIBUTION WIDTH 14.6 % (11.5-14.5)
[2020-04-26 22:49] LABS: CALCIUM 8.5 mg/dL (8.5-10.1); CARBON DIOXIDE 25.8 mmol/L (21-32); CHLORIDE SERUM 104 mmol/L (98-107); CREATININE SERUM 1.4 mg/dL (0.7-1.3); GFR1 > 60 mL/min; GLUCOSE SERUM 104 mg/dL (74-106); POTASSIUM SERUM 3.9 mmol/L (3.5-5.1); SODIUM SERUM 141 mmol/L (136-145)
[2020-04-26 22:54] LABS: ALBUMIN 3.6 g/dL (3.4-5.0); ALKALINE PHOSPHATASE 54 U/L (46-116); ALT/SGPT 33 U/L (16-63); AST/SGOT 21 U/L (15-37); BILIRUBIN TOTAL 0.3 mg/dL (0.20-1.00); LIPASE 83 IU/L (73-393); TOTAL PROTEIN, SERUM 6.6 g/dL (6.4-8.2)
[2020-04-27 01:47] VITALS: BP 132/87
== END 2020-04-27 01:47 | disposition home or self-care (01) ==
LOC: ED 21:52
DX: R10.9 Unspecified abdominal pain (principal); F15.10 Other stimulant abuse, uncomplicated; Z91.013 Allergy to seafood; Z88.8 Allergy status to other drugs, medicaments and biological substances

== ENCOUNTER 2020-07-27 21:03 | Emergency (ER) | payer OTHER, MEDICAID ==
[~2020-07-27] VITALS: Ht 175.3 cm; Wt 90.3 kg
[2020-07-27 21:30] VITALS: Ht 175.3 cm; Wt 90.3 kg
[2020-07-27] MEDS ORDERED: ZIT250 PO (23:29)
[2020-07-27] MEDS ORDERED: PROAIR HFA8.5 GM INH (23:29)
[2020-07-27 23:41] LABS: BASOPHIL % 0.4 % (0.2-1.5); PLATELET COUNT 238 x10^3mcL (152-348); RED CELL DISTRIBUTION WIDTH 13.6 % (12.1-16.2)
[2020-07-27 23:42] LABS: CALCIUM 8.5 mg/dL (8.5-10.1); CARBON DIOXIDE 24.2 mmol/L (21-32); CHLORIDE SERUM 100 mmol/L (98-107); CREATININE SERUM 1.2 mg/dL (0.7-1.3); GFR1 > 60 mL/min; GLUCOSE SERUM 84 mg/dL (74-106); POTASSIUM SERUM 3.7 mmol/L (3.5-5.1); SODIUM SERUM 136 mmol/L (136-145)
[2020-07-27 23:46] LABS: ALBUMIN 3.7 g/dL (3.4-5.0); ALKALINE PHOSPHATASE 65 U/L (46-116); ALT/SGPT 39 U/L (16-63); AST/SGOT 21 U/L (15-37); BILIRUBIN TOTAL 0.22 mg/dL (0.20-1.00); TOTAL PROTEIN, SERUM 7.5 g/dL (6.4-8.2)
[2020-07-28 00:30] VITALS: BP 112/66
== END 2020-07-28 00:30 | disposition home or self-care (01) ==
LOC: ED 21:03
PROVIDERS: Emergency Medicine
DX: J20.9 Acute bronchitis, unspecified (principal); Z91.013 Allergy to seafood; Z88.8 Allergy status to other drugs, medicaments and biological substances; Z20.828 Contact with and (suspected) exposure to other viral communicable diseases
CPT/HCPCS: J7030

== ENCOUNTER 2020-08-03 18:36 | Emergency (ER) | payer OTHER, MEDICAID ==
[~2020-08-03] VITALS: Ht 180.3 cm; Wt 93.0 kg
[~2020-08-03 18:36] MED LIST: PROAIR HFA8.5 GM INH; ZIT250 PO
[2020-08-03 19:16] VITALS: BP 133/76
[2020-08-03] MEDS ORDERED: ANTIBIOTIC O500 U/GM TOP (22:08)
== END 2020-08-03 23:15 | disposition home or self-care (01) ==
LOC: ED 18:36
DX: S60.512A Abrasion of left hand, initial encounter (principal); Z91.013 Allergy to seafood; Z91.041 Radiographic dye allergy status; Z13.9 Encounter for screening, unspecified; X58.XXXA Exposure to other specified factors, initial encounter; Y93.89 Activity, other specified; Y92.89 Other specified places as the place of occurrence of the external cause; Y99.8 Other external cause status
CPT/HCPCS: 90715